=== PATIENT | male | born 1955 | race Caucasian/White ===

== ENCOUNTER 2024-03-24 15:57 | Inpatient (IN) | payer MEDICARE, OTHER ==
[~2024-03-24] VITALS: Ht 165.1 cm; Wt 83.9 kg
[2024-03-24 16:30] VITALS: BP 124/94; TEMP 97.4; O2SAT 94
[2024-03-24] MEDS ORDERED: TEMAZEPAM 7.5 MG CAPSULE PO PRN (18:00)
[2024-03-24] MEDS ORDERED: ACETAMINOPHEN 325 MG TABLET PO PRN (18:00)
[2024-03-24] MEDS ORDERED: MAG HYDROX/AL HYDROX/SIMETH 30 ML UDC PO PRN ×2 (18:00→22:00)
[2024-03-24] MEDS ORDERED: MAGNESIUM HYDROXIDE 30 ML UDC PO PRN (18:00)
[2024-03-24] MEDS ORDERED: POLY17PO4 PO (18:02)
[2024-03-24] MEDS ORDERED: ATOR20TA PO (18:02)
[2024-03-24] MEDS ORDERED: DIVA-78 PO (18:02)
[2024-03-24] MEDS ORDERED: DOCU100T2 PO (18:02)
[2024-03-24] MEDS ORDERED: MAG-5 PO (18:02)
[2024-03-24] MEDS ORDERED: QUET200T PO (18:02)
[2024-03-24] MEDS ORDERED: OLAN10TA3 PO (18:02)
[2024-03-24] MEDS ORDERED: MULT-213 PO (18:02)
[2024-03-24] MEDS ORDERED: LEVO125T8 PO (18:02)
[2024-03-24] MEDS: BLOOD SUGAR DIAGNOSTIC 1 EACH STRIP IN ONE (18:15)
[2024-03-24 20:00] VITALS: BP 143/90; TEMP 97.6; O2SAT 95
[2024-03-24] MEDS: ATORVASTATIN 10 MG TABLET PO SCH (22:00)
[2024-03-24] MEDS: DOCUSATE SODIUM 100 MG CAPSULE PO SCH (22:00)
[2024-03-24] MEDS: POLYETHYLENE GLYCOL 3350 17 GM POWD.PACK PO SCH (22:00)
[2024-03-25] MEDS: LEVOTHYROXINE SODIUM 125 MCG TABLET PO SCH (07:30)
[2024-03-25 08:00] VITALS: BP 126/70; TEMP 97.4; O2SAT 95
[2024-03-25] MEDS ORDERED: clonazePAM 0.5 MG TABLET PO PRN (08:00)
[2024-03-25] MEDS ORDERED: QUETIAPINE FUMARATE 100 MG TABLET PO SCH (08:00)
[2024-03-25] MEDS: clonazePAM 0.5 MG TABLET PO PRN (08:43)
[2024-03-25] MEDS: NICOTINE PATCH (21MG) 21 MG PATCH.TD24 TD SCH (08:43)
[2024-03-25] MEDS: OLANZAPINE 10 MG TABLET PO SCH (08:43)
[2024-03-25] MEDS: DIVALPROEX SODIUM 500 MG TABLET.DR PO SCH (08:43)
[2024-03-25] MEDS: MULTIVIT W/MINERALS 1 TAB TABLET PO SCH (08:43)
[2024-03-25 09:45] VITALS: BP 149/77; TEMP 97.9; O2SAT 96
[2024-03-25] MEDS: diphenhydrAMINE HCL 50 MG/ML VIAL IM ONE (09:45)
[2024-03-25] MEDS: OLANZAPINE 10 MG VIAL IM ONE (09:45)
[2024-03-25 10:00] VITALS: BP 135/71; TEMP 97.8; O2SAT 97
[2024-03-25 16:00] VITALS: BP 145/88; TEMP 98.2; O2SAT 99
[2024-03-25 20:24] VITALS: BP 99/61; TEMP 98.2; O2SAT 97
[2024-03-25] MEDS: QUETIAPINE FUMARATE 100 MG TABLET PO SCH (21:59)
[2024-03-25] MEDS ORDERED: TEMAZEPAM 7.5 MG CAPSULE PO PRN (22:00)
[2024-03-26] MEDS: diphenhydrAMINE HCL 50 MG/ML VIAL IM STA (11:13)
[2024-03-26] MEDS: OLANZAPINE 10 MG VIAL IM STA (11:13)
[2024-03-26 16:03] VITALS: BP 127/94; TEMP 97.9; O2SAT 97
[2024-03-27 08:00] VITALS: BP 125/84; O2SAT 100
[2024-03-27 16:00] VITALS: BP 104/67; TEMP 98.4; O2SAT 95
[2024-03-27 17:13] VITALS: BP 125/84; O2SAT 100
[2024-03-27 20:59] VITALS: BP 122/65; TEMP 98.2; O2SAT 96
[2024-03-29 08:00] VITALS: BP 133/106; TEMP 97.7; O2SAT 94
[2024-03-29] MEDS: HALOPERIDOL LACTATE INJ 5 MG/ML VIAL IM STA (12:15)
[2024-03-29 16:11] VITALS: BP 158/95; TEMP 98; O2SAT 100
[2024-03-29] MEDS: HALOPERIDOL LACTATE INJ 5 MG/ML VIAL IM ONE (16:57)
[2024-03-30 08:00] VITALS: BP 142/90; TEMP 98; O2SAT 94
[2024-03-30 16:00] VITALS: BP 137/90; TEMP 98.6; O2SAT 96
[2024-03-30 20:00] VITALS: BP 116/71; TEMP 97.9; O2SAT 95
[2024-03-30] MEDS: HALOPERIDOL LACTATE INJ 5 MG/ML VIAL IM PRN (22:37)
[2024-03-31 08:00] VITALS: BP 139/90; TEMP 98; O2SAT 99
[2024-03-31] MEDS ORDERED: HALOPERIDOL LACTATE INJ 5 MG/ML VIAL IM SCH (09:00)
[2024-03-31 16:00] VITALS: BP 118/80; TEMP 98; O2SAT 98
[2024-03-31 20:00] VITALS: BP 126/81; TEMP 97.9; O2SAT 96
[2024-04-01 16:00] VITALS: BP 143/89; TEMP 98; O2SAT 96
[2024-04-01 20:23] VITALS: BP 146/95; TEMP 98.1; O2SAT 97
[2024-04-02 17:00] VITALS: BP 112/73; TEMP 98.3; O2SAT 96
[2024-04-02 20:01] VITALS: BP 105/67; TEMP 98.6; O2SAT 96
[2024-04-03 16:06] VITALS: BP 113/81; TEMP 98; O2SAT 98
[2024-04-03 20:47] VITALS: BP 102/58; TEMP 98; O2SAT 98
[2024-04-04 16:00] VITALS: BP 117/83; TEMP 98.2; O2SAT 99
[2024-04-05 09:19] VITALS: BP 119/76; TEMP 97.8; O2SAT 97
[2024-04-05 16:00] VITALS: BP 93/65; TEMP 97.8; O2SAT 96
[2024-04-05 20:00] VITALS: BP 92/56; TEMP 97.9; O2SAT 97
[2024-04-06 08:18] VITALS: BP 119/69; TEMP 98; O2SAT 96
== END 2024-04-06 14:35 | DRG 885 ==
LOC: GPS 15:57
PROVIDERS: ADMIT Psychiatry & Neurology Psychiatry
DX: F29 Unspecified psychosis not due to a substance or known physiological condition (principal); E78.5 Hyperlipidemia, unspecified; E03.9 Hypothyroidism, unspecified; G31.84 Mild cognitive impairment of uncertain or unknown etiology; Z20.822 Contact with and (suspected) exposure to COVID-19
CPT/HCPCS: J1200; J1630; J3490